=== PATIENT | male | born 1985 | race Caucasian/White ===

== ENCOUNTER 2018-08-31 10:39 | Emergency (ER) | payer MEDICAID ==
[~2018-08-31] VITALS: Ht 170.2 cm; Wt 90.7 kg
[2018-08-31 10:53] VITALS: BP_SYST 135
[2018-08-31] MEDS ORDERED: BACITRACIN 1 GM OINT TP ONE (11:00)
[2018-08-31 12:35] VITALS: BP_SYST 135
== END 2018-08-31 12:35 | disposition home or self-care (01) ==
LOC: SED 10:39
DX: S61.002A Unspecified open wound of left thumb without damage to nail, initial encounter (principal); R03.0 Elevated blood-pressure reading, without diagnosis of hypertension; W31.89XA Contact with other specified machinery, initial encounter; Y93.89 Activity, other specified; Y92.89 Other specified places as the place of occurrence of the external cause; Y99.8 Other external cause status
CPT/HCPCS: 73140-TC; 99283